=== PATIENT | female | born 1980 | race African-American/Black ===

== ENCOUNTER 2017-05-09 08:49 | Emergency (ER) | payer MEDICAID, OTHER ==
[~2017-05-09] VITALS: Ht 175.3 cm; Wt 109.0 kg
[2017-05-09] MEDS ORDERED: ONDANSETRON HCL 4MG/2ML VIAL IM ONE (10:15)
[2017-05-09 11:43] VITALS: BP 127/57
== END 2017-05-09 11:44 | disposition home or self-care (01) ==
LOC: ER 08:53
DX: J06.9 Acute upper respiratory infection, unspecified (principal)
CPT/HCPCS: 71010; 93005; 96372; 99284; J2405; Z7610

== ENCOUNTER 2022-11-11 05:06 | Emergency (ER) | payer MEDICAID, OTHER ==
[~2022-11-11] VITALS: Ht 172.7 cm; Wt 122.0 kg
[2022-11-11 05:13] VITALS: BP 125/76
== END 2022-11-11 08:04 | disposition left against medical advice (07) ==
LOC: ER 05:31
DX: Z53.21 Procedure and treatment not carried out due to patient leaving prior to being seen by health care provider (principal)